=== PATIENT | male | born 1990 | race American Indian/Alaskan Native ===

== ENCOUNTER 2021-07-30 13:44 | Emergency (ER) | payer SELFPAY ==
--- NOTE | 2021-07-30 16:10 | Emergency Department Report ---
ED Psych HPI - General Chief Complaint: Medical Clearance Stated Complaint: MENTAL HEALTH Time Seen by Provider: 07/30/21 15:53 Source: patient Mode of arrival: Ambulatory - History of Present Illness Initial Comments: CC: "I need medication. My stepfather brought me." HPI: This is a 30 yo male with hx of schizophrenia who needs access to mental health services. He and his family are currently homeless, living in a hotel. He was discharged from the [facility] team. He does not have health care insurance. He has not had psychotropic medication in 5-6 months. He received medication injection form which was effective. At home, he is laughing inexplicably. He has insomnia. He is restless. His behavior is unpredictable. He is slamming doors. He is knocking on the doors of other hotel patrons. His stepfather is concerned that the family will be evicted from the hotel due to uncontrollable behavior. Mr. Hickey denies SI/HI/hallucinations. He is calm. He denies physical complaints. Citizen of [place]. He has been a permanent resident for 17 years. Moved to the age 14. MD Complaint: altered mental status -: month(s) (several months) Associated Psychiatric Symptoms: racing thoughts, auditory hallucinations History of same: Yes Quality: intermittent Improves With: medication Worsens With: other (family is "displaced", homeless according to stepfather. Family is living in a hotel.) Context: not taking psychiatric, significant life stressor Associated Symptoms: denies other symptoms Treatments Prior to Arrival: none - Related Data Previous Rx's Medication Instructions Recorded Last Taken Type ARIPiprazole [Abilify] 10 mg PO DAILY 30 Days #30 tab 06/15/21 Unknown Rx traZODone [Desyrel] 50 mg PO QHS 30 Days #30 tab 06/15/21 Unknown Rx ARIPiprazole [Abilify] 10 mg PO DAILY 30 Days #30 tab 07/31/21 Unknown Rx traZODone [Desyrel] 50 mg PO QHS 30 Days #30 tab 07/31/21 Unknown Rx Allergies Allergy/AdvReac Type Severity Reaction Status Date / Time No Known Allergies Allergy Verified 07/30/21 13:58 ED Review of Systems ROS: Stated complaint: MENTAL HEALTH Other details as noted in HPI Comment: All other systems reviewed and negative Constitutional: denies: chills, fever, malaise Respiratory: denies: cough, shortness of breath Cardiovascular: denies: chest pain Gastrointestinal: denies: abdominal pain, nausea, vomiting Musculoskeletal: denies: back pain Psychiatric: auditory hallucinations. denies: anxiety, visual hallucinations, homicidal thoughts, suicidal thoughts Hematological/Lymphatic: denies: as per HPI ED Past Medical Hx - Past Medical History Previous Medical History?: Yes Hx Psychiatric Treatment: Yes (SCHIZOPHRENIA) - Surgical History Past Surgical History?: No - Social History Smoking Status: Current Every Day Smoker Substance Use Type: Marijuana - Medications Home Medications: Home Medications Medication Instructions Recorded Confirmed Last Taken Type ARIPiprazole [Abilify] 10 mg PO DAILY 30 Days #30 tab 06/15/21 Unknown Rx traZODone [Desyrel] 50 mg PO QHS 30 Days #30 tab 06/15/21 Unknown Rx ARIPiprazole [Abilify] 10 mg PO DAILY 30 Days #30 tab 07/31/21 Unknown Rx traZODone [Desyrel] 50 mg PO QHS 30 Days #30 tab 07/31/21 Unknown Rx ED Physical Exam - General Limitations: No Limitations General appearance: alert, in no apparent distress, other (calm, cooperative, disheveled clothing, poor hygiene) - Head Head exam: Present: atraumatic, normocephalic - Eye Eye exam: Present: normal appearance - ENT ENT exam: Present: mucous membranes moist - Neck Neck exam: Present: normal inspection - Respiratory Respiratory exam: Present: normal lung sounds bilaterally, rhonchi. Absent: respiratory distress - Cardiovascular Cardiovascular Exam: Present: regular rate, normal rhythm, normal heart sounds. Absent: systolic murmur, diastolic murmur, rubs, gallop - GI/Abdominal GI/Abdominal exam: Present: soft, normal bowel sounds. Absent: distended, tenderness - Rectal Rectal exam: Present: deferred - Extremities Exam Extremities exam: Present: normal inspection - Neurological Exam Neurological exam: Present: alert, oriented X3 - Psychiatric Psychiatric exam: Present: normal affect, normal mood - Skin Skin exam: Present: warm, dry, intact, normal color. Absent: rash ED Course Vital Signs 07/30/21 07/30/21 07/31/21 17:23 21:46 05:21 Temperature 98.4 F Pulse Rate 53 L Respiratory 18 18 Rate Blood Pressure 111/52 [Right] O2 Sat by Pulse 97 100 98 Oximetry 07/31/21 07/31/21 09:07 12:16 Temperature 97.2 F L 97.2 F L Pulse Rate 53 L 53 L Respiratory 18 18 Rate Blood Pressure 100/56 [Right] O2 Sat by Pulse 97 97 Oximetry ED Medical Decision Making - Lab Data Result diagrams: 07/30/21 16:25 07/30/21 16:25 - Medical Decision Making Schizophrenia: intermittent abnormal behavior at hotel, no access to medications, He needs mental health evaluation and case management services. He is medically clear for psychiatric care. I have requested mental health and case management consultations. Labs notable for benign neutropenia chemistry within normal limits urinalysis unremarkable UDS positive for marijuana. Serum toxicology negative. Patient is medically clear for psychiatric care. Anticipate discharge tomorrow with resources after mental health and case management consultations. I discussed case with mental health belt picker. She recommended 1013 involuntary hold. Patient has uncontrollable aggressive behavior which requires stabilization. Critical care attestation.: If time is entered above; I have spent that time in minutes in the direct care of this critically ill patient, excluding procedure time. ED Disposition Clinical Impression: Schizophrenia, Poor social situation, Acute psychosis Disposition: HOME / SELF CARE / HOMELESS Is pt being admited?: No Does the pt Need Aspirin: No Condition: Stable Instructions: Schizophrenia Additional Instructions: Professional and Agency Contacts To help [facility] (25/01) [place] Crisis Line: Suicide Prevention Line: Crisis Text Line: Text START to 874315 Emergency: 911 Outpatient COMMUNITY Behavioral Health Resources: [facility]: [facility] [address] [place], [place] [address] [place]: [facility] [address] [place] [address] Wednesday thru Wednesday - 8am - 5pm Call to schedule an assessment for mental health and substance abuse programs [facility] Address: [address] [place] [address] Wednesday thru Wednesday- 7am-2pm [facility] Address: [address] [place] [id number] Wednesday thru Wednesday: 8:30AM-5PM HOMELESS RESOURCES: [facility] NEED HELP? If you are in need of help or know someone who does, please contact us at [email or web address] , or come to our offices at [address] [place] [address], [place] [address], Wednesday-Wednesday beginning 9:30 AM-1:30 PM -Support services help people with getting identification and legal documents -Homeless verification letter -Facesheet (if needed) [facility] Males only Admission at 7am Wed to Wed Address: [address] [place] [address] Client Engagement [phone] Regular program admission occurs Wednesday through Wednesday at 7:00 amand operates on a first come, first serve basis.Because we cant anticipate program availability in advance andprogram spots are in high demand, we recommend arriving early. Space fills up fast! Next steps can include: Assignment to a [facility] program bed Connection to and placement in a partner program, or Referral to a partner agency [facility] Admission at 4:30pm daily Address: [place] [address] [facility] Admission from 8am to 10am Daily No intake until 07/01/20 Address: [place] [address] Prescriptions: traZODone [Desyrel] 50 mg PO QHS 30 Days #30 tab ARIPiprazole [Abilify] 10 mg PO DAILY 30 Days #30 tab Referrals: PRIMARY CARE,MD [Primary Care Provider] - 3-5 Days
[2021-07-30 16:43] LABS: Basophils % (Auto) 0.7 % (0.0-1.8); Eosinophils % (Auto) 1.2 % (0.0-4.3); Hematocrit 46.1 % (35.5-45.6); Hemoglobin 14.7 gm/dl (11.8-15.2); Lymphocytes # (Auto) 1.5 K/mm3 (1.2-5.4); Lymphocytes % (Auto) 48.3 % (13.4-35.0); Mean Corpuscular HGB Conc 32 % (32-34); Mean Corpuscular Volume 91 fl (84-94); Monocytes # (Auto) 0.2 K/mm3 (0.0-0.8); Platelet Count 220 K/mm3 (140-440); Red Blood Count 5.07 M/mm3 (3.65-5.03); Red Cell Distribution Width 14.2 % (13.2-15.2)
[2021-07-30 16:57] LABS: BUN/Creatinine Ratio 21; Blood Urea Nitrogen 19 mg/dL (9-20); Hemolysis Index 30
[2021-07-30 17:42] LABS: Amphetamine Screen,Urine Negative; Benzodiazepines Screen,Urine Negative; Cocaine Screen,Urine Negative; Methadone Screen,Urine Negative; Opiate Screen,Urine Negative
[2021-07-30 17:49] LABS: Bilirubin,Urine NEG (Negative); Blood,Urine NEG (Negative); Color,Urine Yellow (Yellow); Mucus,Urine 3+ /HPF; Protein,Urine <15 mg/dL mg/dL (Negative); RBC,Urine < 1.0 /HPF (0.0-6.0); Urobilinogen,Urine < 2.0 mg/dL (<2.0)
[2021-07-30 17:54] LABS: Cannabinoid Screen,Urine Positive
[2021-07-31 09:08] VITALS: BP 100/56
--- NOTE | 2021-07-31 10:44 | Consultation ---
History of Present Illness - Reason for Consult Consult date: 07/31/21 Reason for consult: mental health evaluation - History of Present Psychiatric Illness ED Note: This is a 30 yo male with hx of schizophrenia who needs access to mental health services. He and his family are currently homeless, living in a hotel. He was discharged from the [facility] team. He does not have health care insurance. He has not had psychotropic medication in 5-6 months. He received medication injection form which was effective. At home, he is laughing inexplicably. He has insomnia. He is restless. His behavior is unpredictable. He is slamming doors. He is knocking on the doors of other hotel patrons. His stepfather is concerned that the family will be evicted from the hotel due to uncontrollable behavior. The patient is a 30 year old male with history of schizophrenia who presents to the ED. The patient was seen this morning. He states" they told me to come down here to get my medications. " The patient is calm, alert and oriented x2. He denies any current suicidal/homicidal ideation and denies hallucinations. PAST PSYCHIATRIC HISTORY: Diagnoses: Schizophrenia Suicide attempts or Self-harm behavior: Denies Prior psychiatric hospitalizations:yes Substance Abuse history:Marijuana Previous psychiatric medications tried: Unable to recall Outpatient treatment: Unknown PAST MEDICAL HISTORY: None reported or document Family Psychiatric History: None reported or documented SOCIAL HISTORY Marital Status: Single Living Arrangements: Lives with mother Employment Status: unemployed Access to guns/weapons: Denies Education: 9th grade History of Abuse: Denies Legal History: Denies REVIEW OF SYSTEMS Constitutional: Negative for weight loss ENT: Negative for stridor Respiratory: Negative for cough or hemoptysis All other systems reviewed and are negative MENTAL STATUS EXAMINATION General Appearance and Behavior: Age appropriate, good hygiene, wearing appropriate clothes. cooperative Cooperation: cooperative Psychomotor Behavior: Psychomotor normal Mood: "ok' Affect and affective range: congruent to stated mood Thought Process: Goal directed Thought Content:Reality oriented Speech: normal tone and pace Suicidal Ideation:Denies Homicidal Ideation: Denies Hallucinations: Denies Delusions: None elicited Impulse Control: Limited Insight and Judgment: Limited Memory: limited Attention: Distractible Orientation: alert and oriented Assessment and Plan (1) HX Schizophrenia disorder (2) Treatment Plan Case management Zyprexa 10mg po Daily Trazodone 50mg po QHS Sitter: per primary Medical: per primary Disposition: Do not recommend acute psychiatric inpatient treatment. Senior Credit Officer will provide patient with out patient resources. Will sign off. Thanks Case staffed with Dr. Coto Medications and Allergies Allergies Allergy/AdvReac Type Severity Reaction Status Date / Time No Known Allergies Allergy Verified 07/30/21 13:58 Home Medications Medication Instructions Recorded Confirmed Last Taken Type ARIPiprazole [Abilify] 10 mg PO DAILY 30 Days #30 tab 06/15/21 Unknown Rx traZODone [Desyrel] 50 mg PO QHS 30 Days #30 tab 06/15/21 Unknown Rx ARIPiprazole [Abilify] 10 mg PO DAILY 30 Days #30 tab 07/31/21 Unknown Rx traZODone [Desyrel] 50 mg PO QHS 30 Days #30 tab 07/31/21 Unknown Rx Mental Status Exam - Vital signs Last Vital Signs Temp 97.2 F L 07/31/21 09:07 Pulse 53 L 07/31/21 09:07 Resp 18 07/31/21 09:07 BP 100/56 07/31/21 09:07 Pulse Ox 97 07/31/21 09:07 Results Result Diagrams: 07/30/21 16:25 07/30/21 16:25 Abnormal lab results 07/30/21 07/30/21 07/30/21 Range/Units 16:25 16:25 16:25 WBC 3.1 L (4.5-11.0) K/mm3 RBC 5.07 H (3.65-5.03) M/mm3 Hct 46.1 H (35.5-45.6) % Lymph % (Auto) 48.3 H (13.4-35.0) % Avery % (Auto) 8.0 H (0.0-7.3) % Seg Neutrophils # 1.3 L (1.8-7.7) K/mm3 Salicylates < 0.3 L (2.8-20.0) mg/dL Acetaminophen 5.0 L (10.0-30.0) ug/mL All other labs normal.
--- NOTE | 2021-07-31 12:17 | Emergency Department Report ---
Blank Doc - Documentation Documentation: Medical record reviewed. Patient has been medically cleared and evaluated by mental health recommendation for discharge with prescribed psychiatric meds and outpatient follow-up provided
== END 2021-07-31 14:07 | disposition home or self-care (01) ==
LOC: ED 13:44 → EEVIPCON 13:44 → ED 07-31 14:07
DX: F20.9 Schizophrenia, unspecified (principal); Z20.822 Contact with and (suspected) exposure to COVID-19; Z60.9 Problem related to social environment, unspecified; Z59.00 Homelessness unspecified; F17.200 Nicotine dependence, unspecified, uncomplicated; F12.90 Cannabis use, unspecified, uncomplicated; Z79.899 Other long term (current) drug therapy
CPT/HCPCS: 36415; 80048; 80307; 81001; 85025; 99284; U0003; 80320; G0480